=== PATIENT | male | born 1985 | race American Indian/Alaskan Native ===

== ENCOUNTER 2019-11-30 20:42 | Emergency (ER) | payer MEDICAID ==
[2019-11-30] MEDS ORDERED: Sodium Chloride 0.9% 10 ML Syringe FLUSH PRN (21:10)
[2019-11-30] MEDS ORDERED: Sodium Chloride 0.9% 2.5 ML Syringe FLUSH PRN (21:10)
--- NOTE | 2019-11-30 21:19 | EDM.PDOC ---
ED HPI GENERAL MEDICAL PROBLEM - General Chief Complaint: Gastrointestinal Problem Stated Complaint: LIVER PROBLEMS Time Seen by Provider: 11/30/19 20:54 Source of Information: Reports: Family - History of Present Illness INITIAL COMMENTS - FREE TEXT/NARRATIVE: History of present illness: 34-year-old male brought by mother from another facility in [facility] for altered mental status, abnormal skin coloration. Apparently the patient was admitted at that facility and signed papers to go into hospice, however the mother reports she does not agree with that and instead signed him out AMA from that hospital and brought him here. Apparently he has a history of polysubstance abuse although his mother reports only alcohol use and no other substances. The patient had apparently been refusing any therapy though now is confused. His mother is concerned that this confusion is due to morphine that he was given at that hospital. She reports his symptoms started about a week ago with increasing abdominal girth and then 4 days ago started to develop jaundice and then over the last 2 days has had increasing mental status changes and lethargy. She does report that while he was hospitalized there he had some patches placed behind his ears. There is a Scopolamine patch present behind the left ear which I removed. Prior to this, mother reports that he had no medical problems. Patient is confused/altered and somewhat lethargic and therefore unable to give any history. All history is taken from his mother. Patient had previously refused all invasive testing including paracentesis. The facility did call to this emergency department to give report to the day physician, they reported that the patient had a white blood cell count of 28 and hemoglobin of 6 but had a negative rectal exam and was guaiac negative. They reported that the patient refusing any kind of therapy and that he had signed hospice papers. However the mother signed him out AMA and did not bring any records from that facility. Review of systems: As per history of present illness and below otherwise all systems reviewed and negative. Past medical history: As per history of present illness and as reviewed below otherwise noncontributory. No known medical problems Surgical history: As per history of present illness and as reviewed below otherwise noncontributory. No prior surgeries Social history: The patient's mother reports no history of drug abuse. She reports no IV drug use whatsoever. She also reports no tobacco. She reports that he does drink daily usually about 2 shots. Family history: As per history of present illness and as reviewed below otherwise noncontributory. Physical exam: GEN: Ill-appearing, confused, jaundiced HEENT: Atraumatic, normocephalic, mucous membranes dry. Scleral icterus Neck: supple. Lungs: No respiratory distress. Heart: Mildly tachycardic but regular Abdomen: Soft, nontender to palpation. Distended/ascites Back: nontender Extremities: Atraumatic. Neurovascularly intact. Neuro: Eyes open though appears confused, unable to stand and bear weight on his own, requires significant assistance to transfer from wheelchair to the bed. Per the patient's mother this is not at all like the patient. He is not speaking to me at all, although he did answer some simple yes or no questions for the nurses. He was able to move arms and legs. Skin: Severe jaundice. Diagnostics: Labs, ammonia ultrasound abdomen, CT abdomen/pelvis, CT brain Therapeutics: IV fluids, thiamine, folic acid, potassium, lactulose, cefepime, vancomycin MDM: Impression: [] Plan: [] Definitive disposition and diagnosis as appropriate pending reevaluation and review of above. - Related Data Allergies Allergy/AdvReac Type Severity Reaction Status Date / Time No Known Allergies Allergy Verified 11/30/19 21:15 Home Meds: Home Meds . [No Known Home Meds] 11/30/19 [History] ED ROS GENERAL - Review of Systems Review Of Systems: See Below (See HPI) - Physical Exam Exam: See Below (See HPI) Course - Vital Signs Text/Narrative:: Patient with no prior medical history although history of alcohol use. Abnormal labs on work-up here today including elevated ammonia, elevated white blood cell count, anemic to a hemoglobin of 7, renal insufficiency, creatinine 4.5, and abnormal LFTs and lipase level. Hypokalemic. This will be repleted. As patient may have alcoholic liver disease, in addition to the hepatic encephalopathy, possible Wernicke's and will add folate and thiamine. Alcohol level 3. Serum osmolality sent, this was discussed with lab, however this is a send out for our facility and will not return for 4 to 5 days. Calculated serum OSM= 302 Patient will likely need further intervention, nephrology, GI and possibly interventional radiology and therefore will need transfer. Ultrasound shows liver with normal echotexture and minimal ascites. Mild splenomegaly. We will also add CT abdomen/pelvis and CT brain. I reviewed the images of the CT abdomen/pelvis and CT brain. Radiology report still pending at time of transfer. I did not see any intracranial bleed on CT brain. CT abdomen/pelvis does appear to show moderate ascites and air-filled bowel as well as fluid around the liver and some abnormal appearance in the lungs, concerning for possible pneumonia. I will add antibiotics as the patient does have an elevated white blood cell count and possible pneumonia, still pending CT scan report reads. Will order cefepime 2 g and vancomycin 1 g given the patient's renal failure and this will be further renally dosed if needed. Lactulose was also given. Final read by radiologist for: CT brain: No acute findings CT abdomen: Large amount of ascites throughout the abdomen and pelvis, moderate splenomegaly, likely cirrhosis and portal venous hypertension, nonspecific diffuse prominence of bowel gas suggesting mild ileus, status post cholecystectomy, subacute healing fractures of the left ninth and 10th ribs. There is atelectasis in the lungs. Last Recorded V/S: Last Vital Signs Temp 96.2 F L 11/30/19 20:58 Pulse 101 H 12/01/19 00:18 Resp 20 12/01/19 00:18 BP 110/74 12/01/19 00:18 Pulse Ox 93 L 12/01/19 00:18 - Orders/Labs/Meds Orders: Active Orders 24 hr Category Date Time Status OSMOLALITY - SERUM [REF] Stat Lab 11/30/19 21:10 Received Saline Lock Insert [OM.PC] Stat Oth 11/30/19 21:10 Ordered Labs: Laboratory Tests 11/30/19 11/30/19 11/30/19 Range/Units 21:10 21:10 21:10 WBC 18.23 H (4.0-11.0) K/uL RBC 1.99 L (4.50-5.90) M/uL Hgb 7.0 L (13.0-17.0) g/dL Hct 19.0 L (38.0-50.0) % MCV 95.5 (80.0-98.0) fL MCH 35.2 H (27.0-32.0) pg MCHC 36.8 (31.0-37.0) g/dL RDW Std Deviation 52.2 (28.0-62.0) fl RDW Coeff of Sb 16 H (11.0-15.0) % Plt Count 209 (150-400) K/uL MPV 9.50 (7.40-12.00) fL Add Manual Diff YES Neutrophils % (Manual) 82 H (48.0-80.0) % Band Neutrophils % 2 % Lymphocytes % (Manual) 5 L (16.0-40.0) % Monocytes % (Manual) 8 (0.0-15.0) % Eosinophils % (Manual) 3 (0.0-7.0) % Absolute Seg Neuts 14.9 H (1.4-5.7) Band Neutrophils # 0.4 Lymphocytes # (Manual) 0.9 (0.6-2.4) Monocytes # (Manual) 1.5 H (0.0-0.8) Eosinophils # (Manual) 0.5 (0.0-0.7) Sodium 137 (136-148) mmol/L Potassium 2.9 L (3.5-5.1) mmol/L Chloride 101 (98-107) mmol/L Carbon Dioxide 20.3 L (21.0-32.0) mmol/L BUN 59 H (7.0-18.0) mg/dL Creatinine 4.5 H (0.8-1.3) mg/dL Est Cr Clr Drug Dosing 28.67 mL/min Estimated GFR (MDRD) 15.2 ml/min Glucose 104 (74-106) mg/dL Calcium 7.6 L (8.5-10.1) mg/dL Total Bilirubin 28.3 H (0.2-1.0) mg/dL AST 93 H (15-37) IU/L ALT 41 (14-63) IU/L Alkaline Phosphatase 170 H (46-116) U/L Ammonia 63 H (19-54) ug/dL Total Protein 7.7 (6.4-8.2) g/dL Albumin 2.0 L (3.4-5.0) g/dL Globulin 5.7 H (2.6-4.0) g/dL Albumin/Globulin Ratio 0.4 L (0.9-1.6) Lipase 750 H (73-393) U/L Urine Opiates Screen (NEGATIVE) Ur Oxycodone Screen (NEGATIVE) Urine Methadone Screen (NEGATIVE) Ur Barbiturates Screen (NEGATIVE) Ur Phencyclidine Scrn (NEGATIVE) Ur Amphetamine Screen (NEGATIVE) U Methamphetamines Scrn (NEGATIVE) U Benzodiazepines Scrn (NEGATIVE) U Cocaine Metab Screen (NEGATIVE) U Marijuana (THC) Screen (NEGATIVE) Ethyl Alcohol mg/dL Blood Type Antibody Screen 11/30/19 11/30/19 11/30/19 Range/Units 21:10 21:27 21:37 WBC (4.0-11.0) K/uL RBC (4.50-5.90) M/uL Hgb (13.0-17.0) g/dL Hct (38.0-50.0) % MCV (80.0-98.0) fL MCH (27.0-32.0) pg MCHC (31.0-37.0) g/dL RDW Std Deviation (28.0-62.0) fl RDW Coeff of Sb (11.0-15.0) % Plt Count (150-400) K/uL MPV (7.40-12.00) fL Add Manual Diff Neutrophils % (Manual) (48.0-80.0) % Band Neutrophils % % Lymphocytes % (Manual) (16.0-40.0) % Monocytes % (Manual) (0.0-15.0) % Eosinophils % (Manual) (0.0-7.0) % Absolute Seg Neuts (1.4-5.7) Band Neutrophils # Lymphocytes # (Manual) (0.6-2.4) Monocytes # (Manual) (0.0-0.8) Eosinophils # (Manual) (0.0-0.7) Sodium (136-148) mmol/L Potassium (3.5-5.1) mmol/L Chloride (98-107) mmol/L Carbon Dioxide (21.0-32.0) mmol/L BUN (7.0-18.0) mg/dL Creatinine (0.8-1.3) mg/dL Est Cr Clr Drug Dosing mL/min Estimated GFR (MDRD) ml/min Glucose (74-106) mg/dL Calcium (8.5-10.1) mg/dL Total Bilirubin (0.2-1.0) mg/dL AST (15-37) IU/L ALT (14-63) IU/L Alkaline Phosphatase (46-116) U/L Ammonia (19-54) ug/dL Total Protein (6.4-8.2) g/dL Albumin (3.4-5.0) g/dL Globulin (2.6-4.0) g/dL Albumin/Globulin Ratio (0.9-1.6) Lipase (73-393) U/L Urine Opiates Screen POSITIVE (NEGATIVE) Ur Oxycodone Screen NEGATIVE (NEGATIVE) Urine Methadone Screen NEGATIVE (NEGATIVE) Ur Barbiturates Screen NEGATIVE (NEGATIVE) Ur Phencyclidine Scrn NEGATIVE (NEGATIVE) Ur Amphetamine Screen NEGATIVE (NEGATIVE) U Methamphetamines Scrn NEGATIVE (NEGATIVE) U Benzodiazepines Scrn POSITIVE (NEGATIVE) U Cocaine Metab Screen NEGATIVE (NEGATIVE) U Marijuana (THC) Screen NEGATIVE (NEGATIVE) Ethyl Alcohol 3 mg/dL Blood Type A POSITIVE Antibody Screen NEGATIVE Meds: Medications Discontinued Medications Generic Name Dose Route Start Last Admin Trade Name Freq PRN Reason Stop Dose Admin Folic Acid 1 mg 11/30/19 23:45 12/01/19 00:43 Folic Acid IV 1 mg DAILY ARCELIA Administration Thiamine HCl 100 mg/ Sodium 101 mls @ 202 mls/hr 11/30/19 23:58 12/01/19 00:45 Chloride IV 11/30/19 23:59 202 mls/hr ONETIME ONE Administration Potassium Chloride 40 meq/ 100 mls @ 25 mls/hr 11/30/19 23:58 12/01/19 00:46 Premix IV 12/01/19 03:57 25 mls/hr ONETIME ONE Administration Sodium Chloride 1,000 mls @ 999 mls/hr 11/30/19 23:45 Normal Saline IV ASDIRECTED [facility] Cefepime HCl 1 gm/ Premix 50 mls @ 100 mls/hr 12/01/19 00:33 12/01/19 00:41 IV 12/01/19 01:02 100 mls/hr ONETIME ONE Administration Vancomycin HCl 1 gm/ Sodium 250 mls @ 166 mls/hr 12/01/19 00:33 12/01/19 01:40 Chloride IV 12/01/19 02:03 Not Given ONETIME ONE Cefepime HCl 1 gm/ Premix 50 mls @ 100 mls/hr 12/01/19 00:34 12/01/19 01:40 IV 12/01/19 01:03 Not Given ONETIME ONE Cefepime HCl Confirm 12/01/19 00:34 12/01/19 01:40 Maxipime In D5w 1 Gm/50 Ml Administered 12/01/19 00:35 Not Given Dose 100 mls @ as directed .ROUTE .STK-MED ONE Sodium Chloride Confirm 12/01/19 00:36 12/01/19 01:40 Normal Saline (Advbag) Administered 12/01/19 00:37 Not Given Dose 250 mls @ as directed .ROUTE .STK-MED ONE Lactulose 10 gm 11/30/19 23:53 12/01/19 00:31 Chronulac PO 11/30/19 23:54 10 gm ONETIME ONE Administration Sodium Chloride 10 ml 11/30/19 21:10 11/30/19 22:05 Saline Flush FLUSH 10 ml ASDIRECTED PRN Administration Keep Vein Open Sodium Chloride 2.5 ml 11/30/19 21:10 11/30/19 22:04 Saline Flush FLUSH 2.5 ml ASDIRECTED PRN Administration Keep Vein Open Vancomycin HCl Confirm 12/01/19 00:35 12/01/19 01:40 Vancocin Administered 12/01/19 00:36 Not Given Dose 1 gm .ROUTE .STK-MED ONE - Re-Assessments/Exams Free Text/Narrative Re-Assessment/Exam: 11/30/19 21:50 The patient apparently fell while attempting to get out of bed. No significant injury sustained. Small abrasion to the knee. 12/01/19 00:[address] Miguel, ER physician at [facility], who accepts the case and agrees with plan. Also recommends giving thiamine and folate which will be given here and requested CT brain as well. This was ordered. 12/01/19 00:28 Discussed available results with the patient's mother and family member. Discussed ultrasound findings, lab findings, and need for transfer again. Discussed need to fly the patient, due to the urgent nature of patient's condition. They agree with the plan. Departure - Departure Time of Disposition: 00:00 Disposition: DC/Tfer to Acute Hospital 02 Clinical Impression: Liver failure, Renal failure, Hepatic encephalopathy, Hypokalemia - Discharge Information Referrals: PCP,None [Primary Care Provider] - Forms: ED Department Discharge Critical Care Note - Critical Care Note Total Time (mins): 35 Comments: hepatic encephalopathy, renal and liver failure. Sepsis Event Note (ED) - Evaluation Sepsis Screening Result: No Definite Risk - Focused Exam Vital Signs: Vital Signs Temp Pulse Resp BP Pulse Ox 12/01/19 00:18 101 H 20 110/74 93 L 11/30/19 23:47 99 20 122/70 99 11/30/19 20:58 96.2 F L 102 H 14 117/55 L 95 - My Orders Last 24 Hours: My Active Orders 11/30/19 21:10 OSMOLALITY - SERUM [REF] Stat Saline Lock Insert [OM.PC] Stat - Assessment/Plan Last 24 Hours: My Active Orders 11/30/19 21:10 OSMOLALITY - SERUM [REF] Stat Saline Lock Insert [OM.PC] Stat
[2019-11-30 21:44] LABS: CARBON DIOXIDE,CO2 20.3 mmol/L (21.0-32.0); POTASSIUM,K 2.9 mmol/L (3.5-5.1)
--- NOTE | 2019-11-30 23:44 | US ---
INDICATION: Abdominal distention. TECHNIQUE: Ultrasound abdomen complete. Sonographic images of the entire abdomen were obtained using dutton-scale and color Doppler. COMPARISON: None. FINDINGS: Liver: Normal in size and echotexture. No masses. No intrahepatic biliary dilatation. Gallbladder: Not seen. Common bile duct: 6 mm. Pancreas: Obscured by bowel gas. Spleen: Mild splenomegaly measuring 14.4 cm craniocaudal without focal lesion. Kidneys: Both kidneys are normal in size. Normal echotexture and cortex. No masses, stones, or hydronephrosis. Vasculature: Proximal abdominal aorta and IVC are normal in caliber. Other: Small ascites in all 4 quadrants. IMPRESSION: 1. Gallbladder not seen consistent with contracted state or prior cholecystectomy. 2. Mild splenomegaly. 3. Small ascites in all 4 quadrants. Dictated by Cr Wharton MD @ Nov 30 2019 11:35PM Signed by Dr. Cr Wharton @ Nov 30 2019 11:43PM
[2019-11-30] MEDS ORDERED: Folic Acid 50 MG/10 ML MDV IV SCH (23:45)
[2019-11-30] MEDS ORDERED: Sodium Chloride 0.9% 1,000 ML IV SCH (23:45)
[2019-11-30] MEDS ORDERED: Lactulose Soln 10 GM/15 ML 15 ML UD Cup PO ONE (23:53)
[2019-11-30] MEDS ORDERED: Thiamine 100 MG in Sodium Chloride 0.9% 100 ML IV ONE (23:58)
[2019-11-30] MEDS ORDERED: Potassium Chloride Riders 40 MEQ in Premix Bag 1 BAG IV ONE (23:58)
[2019-12-01] MEDS ORDERED: Cefepime 1 GM in Premix Bag 1 BAG IV ONE ×2 (00:33→00:34)
[2019-12-01] MEDS ORDERED: Vancomycin 1 GM AdvVial ONE (00:35)
[2019-12-01] MEDS ORDERED: Sodium Chloride 0.9% 250 ML ONE (00:36)
--- NOTE | 2019-12-01 01:07 | CT ---
INDICATION: AMS CT HEAD WITHOUT CONTRAST TECHNIQUE: Multiple axial CT images were performed through the head without intravenous contrast administration. COMPARISON: No previous studies are currently available for comparison. FINDINGS: No acute intracranial hemorrhage is identified. No extra-axial collections are evident and there is no mass effect or midline shift. Ventricles are normal in size and configuration. Brain parenchyma appears normal with unremarkable dutton-white differentiation. Osseous structures are within normal limits and no fractures are seen. Included portions of the paranasal sinuses and mastoid air cells are normally aerated. IMPRESSION: Normal non-contrast head CT. SHASHI OSBORNE MD [facility] [employer] Dictated by: Femi Osborne MD @ 12/01/2019 01:05:13 (Electronically Signed)
--- NOTE | 2019-12-01 01:19 | CT ---
INDICATION: ABD DISTENTION, LIVER/RENAL FAILURE CT ABDOMEN AND PELVIS WITHOUT CONTRAST TECHNIQUE: Multidetector CT imaging was performed through the abdomen and pelvis without intravenous contrast administration. Coronal and sagittal reconstructions were generated. COMPARISON: None. FINDINGS: Lower chest: Moderate bibasilar lung atelectasis. Liver: Limited evaluation due to streak artifact and lack of IV contrast. Grossly normal liver size with no focal liver lesion identified. Gallbladder and bile ducts: Status post cholecystectomy. No biliary dilation identified. Pancreas: Unremarkable. Spleen: Moderate splenomegaly measuring 18 centimeters in length. Adrenals: No nodules or masses. Kidneys, ureters, and urinary bladder: No urinary tract stones or hydronephrosis. Moderate distention of the urinary bladder. No bladder mass or definite wall thickening. Gastrointestinal tract: Limited evaluation of the bowel due to ascites and lack of IV contrast. Diffuse mild prominence of gas throughout the small bowel and colon. No definite bowel wall thickening. The appendix is gas filled and appears normal. Vascular structures: Normal for age. Peritoneum: Large amount of ascites throughout the abdomen and pelvis. No free air identified. Lymph nodes: No pathologically enlarged nodes identified. Reproductive organs: No pelvic masses. Bones an abdominal wall: Subacute healing nondisplaced fractures of the left 9th and 10th ribs. Diffuse subcutaneous edema over the flanks bilaterally. IMPRESSION: 1. Large amount of ascites throughout the abdomen and pelvis. 2. Moderate splenomegaly. 3. Together, the above findings raise the possibility of cirrhosis and portal venous hypertension. 4. Nonspecific diffuse prominence of bowel gas suggesting a mild ileus. 5. Status post cholecystectomy. 6. Subacute healing fractures of the left 9th and 10th ribs. SHASHI OSBORNE MD [facility] [employer] Dictated by Femi Osborne MD @ 12/01/2019 1:18:08 AM Dictated by: Femi Osborne MD @ 12/01/2019 01:19:04 (Electronically Signed)
== END 2019-12-01 01:20 ==
LOC: MW.ED 20:42
DX: K72.90 Hepatic failure, unspecified without coma (principal); E87.6 Hypokalemia; N19 Unspecified kidney failure; R41.82 Altered mental status, unspecified
CPT/HCPCS: 36415; 70450; 74176; 76700; 80053; 80305; 80307; 82140; 83690; 83930; 85025; 86850; 86900; 86901; 96365; 96368; 96375; 99285; A9270; J0692; J3411; J3480; J7050; 99291